=== PATIENT | female | born 1980 | race Caucasian/White ===

== ENCOUNTER 2019-06-25 10:44 | Emergency (ER) | payer MEDICAID ==
[~2019-06-25 10:44] MED LIST: NO HOME MEDS
== END 2019-06-25 11:26 | disposition left against medical advice (07) ==
LOC: ER 10:45
DX: R53.1 Weakness (principal); Z53.21 Procedure and treatment not carried out due to patient leaving prior to being seen by health care provider

== ENCOUNTER 2020-10-19 08:25 | Emergency (ER) | payer MEDICAID ==
[~2020-10-19] VITALS: Ht 160 cm; Wt 70.5 kg
[2020-10-19 08:26] VITALS: BP 118/70
== END 2020-10-19 08:59 | disposition home or self-care (01) ==
LOC: ER 08:26
DX: N61.0 Mastitis without abscess (principal); R11.0 Nausea; I10 Essential (primary) hypertension; F15.90 Other stimulant use, unspecified, uncomplicated; F17.200 Nicotine dependence, unspecified, uncomplicated; Z90.49 Acquired absence of other specified parts of digestive tract; Z72.89 Other problems related to lifestyle
CPT/HCPCS: 99284

== ENCOUNTER 2021-04-02 02:45 | Emergency (ER) | payer MEDICAID ==
[~2021-04-02] VITALS: Ht 160 cm; Wt 68.2 kg
[2021-04-02 02:48] VITALS: BP 146/93
[2021-04-02] MEDS ORDERED: ketorolac tromethamine 15mg/ml inj. IM ONE (03:00)
== END 2021-04-02 03:04 | disposition home or self-care (01) ==
LOC: ER 02:45
DX: S39.012A Strain of muscle, fascia and tendon of lower back, initial encounter (principal); M54.41 Lumbago with sciatica, right side; I10 Essential (primary) hypertension; F15.90 Other stimulant use, unspecified, uncomplicated; Z90.49 Acquired absence of other specified parts of digestive tract; Z72.89 Other problems related to lifestyle; X58.XXXA Exposure to other specified factors, initial encounter; Y93.89 Activity, other specified; Y92.89 Other specified places as the place of occurrence of the external cause; Y99.8 Other external cause status
CPT/HCPCS: 99282

== ENCOUNTER 2021-11-12 17:29 | Emergency (ER) | payer MEDICAID ==
[~2021-11-12] VITALS: Ht 160 cm; Wt 68.2 kg
[2021-11-12] MEDS ORDERED: CefTRIAXone 1000mg IM Kit (w/lidocaine diluent) IM ONE (18:15)
[2021-11-12] MEDS ORDERED: TETanus/Pertussis (Acell)/Diphther VAC/PF (Tdap-Adult) 0.5ml syringe IMVAC ONE (18:20)
[2021-11-12] MEDS ORDERED: LIDOcaine 1% W/epiNEPHrine 1:200,000 10ml vial IJ ONE (18:20)
[2021-11-12] MEDS ORDERED: ceFAZolin 1gm IM kit IM ONE (18:25)
[2021-11-12] MEDS ORDERED: LIDOcaine 1% W/epiNEPHrine 1:100,000 20ml vial IJ ONE (18:30)
[2021-11-12] MEDS ORDERED: IBUP-1986 PO (18:34)
[2021-11-12] MEDS ORDERED: SULF1TAB49 PO (18:34)
[2021-11-12 18:54] VITALS: BP 120/82
== END 2021-11-12 18:51 | disposition home or self-care (01) ==
LOC: ER 17:30
DX: L02.611 Cutaneous abscess of right foot (principal); I10 Essential (primary) hypertension; F15.10 Other stimulant abuse, uncomplicated; Z79.899 Other long term (current) drug therapy
CPT/HCPCS: 10060; 73630; 90471; 90715; 96372; 99284; J0690

== ENCOUNTER 2021-11-14 07:56 | Emergency (ER) | payer MEDICAID ==
[~2021-11-14] VITALS: Ht 160 cm; Wt 78.2 kg
[~2021-11-14 07:56] MED LIST changes: +IBUP-1986 PO; +SULF1TAB49 PO
[2021-11-14 08:00] VITALS: BP 131/83
[2021-11-14 09:46] LABS: BASOPHILS % (AUTO) 0.1 % (0-1); EOSINOPHILS # (AUTO) 0.4 X10'3 (0-0.9); EOSINOPHILS % (AUTO) 3.6 % (0-6); HEMATOCRIT 45.3 % (35.0-45.0); HEMOGLOBIN 15.3 g/dl (12.0-16.0); LYMPHOCYTES # (AUTO) 0.5 X10'3 (1.1-4.8); LYMPHOCYTES % (AUTO) 4.4 % (21-51); MEAN CORPUSCULAR HEMOGLOBIN 28.7 PG (27.0-31.0); MEAN CORPUSCULAR HGB CONC 33.7 g/dL (33.0-36.5); MEAN CORPUSCULAR VOLUME 85.1 FL (78-98); MEAN PLATELET VOLUME 7.5 FL (7.4-10.4); MONOCYTES # (AUTO) 0.2 X10'3 (0-0.9); MONOCYTES % (AUTO) 2.2 % (2-12); NEUTROPHILS # (AUTO) 9.5 X10'3 (1.8-7.7); NEUTROPHILS % (AUTO) 89.7 % (42-75); PLATELET COUNT 281 X10'3 (140-440); RED BLOOD COUNT 5.33 X10'6 (4.20-5.60); RED CELL DISTRIBUTION WIDTH 13.1 % (11.5-14.5); WHITE BLOOD COUNT 10.6 X10'3 (4.5-11.0)
[2021-11-14 10:03] LABS: ALANINE AMINOTRANSFERASE 47 U/L (12-78); ALBUMIN 3.9 G/DL (3.4-5.0); ALBUMIN/GLOBULIN RATIO 0.7 (1.1-1.5); ALKALINE PHOSPHATASE 106 IU/L (46-116); ANION GAP 12 (8-16); ASPARTATE AMINO TRANSFERASE 42 U/L (10-37); BILIRUBIN,TOTAL 0.5 MG/DL (0.1-1.0); BLOOD UREA NITROGEN 5 MG/DL (7-18); CALCIUM 8.9 MG/DL (8.5-10.1); CHLORIDE 97 MMOL/L (99-107); CREATININE 0.71 MG/DL (0.40-0.90); GLUCOSE 107 MG/DL (70-104); POTASSIUM 3.7 MMOL/L (3.5-5.1); SODIUM 134 MMOL/L (135-145); TOTAL PROTEIN 9.4 G/DL (6.4-8.2); eGFR > 90 ML/MIN
== END 2021-11-14 14:42 | disposition left against medical advice (07) ==
LOC: ER 07:57
DX: M79.671 Pain in right foot (principal); Z53.21 Procedure and treatment not carried out due to patient leaving prior to being seen by health care provider
CPT/HCPCS: 36415; 71045; 80053; 83605; 84145; 84484; 85025; 87040

== ENCOUNTER 2021-11-17 16:01 | Emergency (ER) | payer MEDICAID ==
[~2021-11-17] VITALS: Ht 160 cm; Wt 68.0 kg
[2021-11-17] MEDS ORDERED: normal saline 1000ML IV soln IV ONE (16:55)
[2021-11-17 17:30] LABS: BASOPHILS % (AUTO) 0.2 % (0-1); EOSINOPHILS # (AUTO) 0.5 X10'3 (0-0.9); EOSINOPHILS % (AUTO) 5.7 % (0-6); HEMOGLOBIN 13.8 g/dl (12.0-16.0); LYMPHOCYTES # (AUTO) 1.7 X10'3 (1.1-4.8); LYMPHOCYTES % (AUTO) 21.3 % (21-51); MEAN CORPUSCULAR HEMOGLOBIN 29.3 PG (27.0-31.0); MEAN CORPUSCULAR HGB CONC 34.6 g/dL (33.0-36.5); MEAN CORPUSCULAR VOLUME 84.6 FL (78-98); MONOCYTES # (AUTO) 0.6 X10'3 (0-0.9); MONOCYTES % (AUTO) 7.5 % (2-12); NEUTROPHILS # (AUTO) 5.2 X10'3 (1.8-7.7); NEUTROPHILS % (AUTO) 65.3 % (42-75); PLATELET COUNT 319 X10'3 (140-440); RED BLOOD COUNT 4.73 X10'6 (4.20-5.60); RED CELL DISTRIBUTION WIDTH 12.6 % (11.5-14.5)
[2021-11-17] MEDS ORDERED: morphine 4 MG/ML inj SYRINge IV ONE (17:30)
[2021-11-17 17:37] LABS: ALANINE AMINOTRANSFERASE 46 U/L (12-78); ALBUMIN 3.2 G/DL (3.4-5.0); ALBUMIN/GLOBULIN RATIO 0.7 (1.1-1.5); ALKALINE PHOSPHATASE 98 IU/L (46-116); ANION GAP 11 (8-16); ASPARTATE AMINO TRANSFERASE 27 U/L (10-37); BILIRUBIN,TOTAL 0.4 MG/DL (0.1-1.0); BLOOD UREA NITROGEN 10 MG/DL (7-18); BUN/CREATININE RATIO 16.1 (6.6-38.0); C-REACTIVE PROTEIN 9.63 MG/DL (0.0-0.5); CALCIUM 8.7 MG/DL (8.5-10.1); CHLORIDE 104 MMOL/L (99-107); CREATININE 0.62 MG/DL (0.40-0.90); GLUCOSE 95 MG/DL (70-104); POTASSIUM 3.3 MMOL/L (3.5-5.1); SODIUM 142 MMOL/L (135-145); TOTAL CARBON DIOXIDE 27.4 MMOL/L (24-32); TOTAL PROTEIN 7.9 G/DL (6.4-8.2); eGFR > 90 ML/MIN
[2021-11-17] MEDS ORDERED: diphenhydrAMINE 50 mg/ml inj IV ONE (17:50)
[2021-11-17 17:52] VITALS: BP 111/71
--- NOTE | 2021-11-17 18:07 | NUR ---
assisting with pt care, pt is resting quietly on gurney, c/o "stinging to private area and rectum", also c/o of blisters to left groin
[2021-11-17] MEDS ORDERED: iohexol 300mg/ml 100ml inj. ONE (18:19)
[2021-11-17] MEDS ORDERED: HYDROcodone/acetaminophen 5mg/325mg tablet PO ONE (18:30)
--- NOTE | 2021-11-17 19:15 | NUR ---
IV PUT IN LEFT AC SALINE FLUSH.
[2021-11-17] MEDS ORDERED: piperacillin/tazo 3.375gm/50ml 50 ML IV ONE (20:35)
--- NOTE | 2021-11-17 21:08 | NUR ---
PT STATED SHE WANTED TO GO SMOKE, PT BEGAN TO WALK OUT AND HAD AN IV THAT SHE THEN RIPPED OUT.
--- NOTE | 2021-11-17 21:30 | NUR ---
PT STATED "WANTS TO LEAVE TO SMOKE OUTSIDE" PATIENT LEFT AT 2100
--- NOTE | 2021-11-17 22:28 | NUR ---
PT REFUSED TO SIGN AMA PAPERWORK, WITNESSED BY SLADE DEMPSEY. DR. GU AWARE AND SIGNED AMA PAPER.
== END 2021-11-17 22:31 | disposition left against medical advice (07) ==
LOC: ER 16:01
DX: L08.9 Local infection of the skin and subcutaneous tissue, unspecified (principal); R53.1 Weakness; M79.89 Other specified soft tissue disorders
CPT/HCPCS: 36415; 74177; 80053; 83605; 84145; 85025; 85651; 86140; 87040; 96374; 96375; 99285; J1200; J2270; J7030; Q9967

== ENCOUNTER 2022-03-26 19:31 | Emergency (ER) | payer MEDICAID ==
[~2022-03-26] VITALS: Ht 160 cm; Wt 75.0 kg
[~2022-03-26 19:31] MED LIST changes: -SULF1TAB49 PO
[2022-03-26] MEDS ORDERED: ondansetron/PF 4mg/2ml inj IV ONE (19:45)
[2022-03-26 20:27] LABS: BASOPHILS % (AUTO) 0.2 % (0-1); EOSINOPHILS # (AUTO) 0.1 X10'3 (0-0.9); EOSINOPHILS % (AUTO) 0.5 % (0-6); HEMATOCRIT 40.4 % (35.0-45.0); HEMOGLOBIN 13.7 g/dl (12.0-16.0); LYMPHOCYTES # (AUTO) 0.9 X10'3 (1.1-4.8); LYMPHOCYTES % (AUTO) 5.7 % (21-51); MEAN CORPUSCULAR HEMOGLOBIN 28.9 PG (27.0-31.0); MEAN CORPUSCULAR VOLUME 85.1 FL (78-98); MONOCYTES # (AUTO) 0.7 X10'3 (0-0.9); MONOCYTES % (AUTO) 4.5 % (2-12); NEUTROPHILS # (AUTO) 13.5 X10'3 (1.8-7.7); NEUTROPHILS % (AUTO) 89.1 % (42-75); PLATELET COUNT 278 X10'3 (140-440); RED BLOOD COUNT 4.75 X10'6 (4.20-5.60); RED CELL DISTRIBUTION WIDTH 13.1 % (11.5-14.5); WHITE BLOOD COUNT 15.2 X10'3 (4.5-11.0)
[2022-03-26 20:42] LABS: ALANINE AMINOTRANSFERASE 105 U/L (12-78); ALBUMIN 3.5 G/DL (3.4-5.0); ALBUMIN/GLOBULIN RATIO 0.8 (1.1-1.5); ALKALINE PHOSPHATASE 104 IU/L (46-116); ANION GAP 6 (8-16); ASPARTATE AMINO TRANSFERASE 107 U/L (10-37); BILIRUBIN,TOTAL 0.1 MG/DL (0.1-1.0); BLOOD UREA NITROGEN 10 MG/DL (7-18); BUN/CREATININE RATIO 12.3 (6.6-38.0); CALCIUM 9.1 MG/DL (8.5-10.1); CHLORIDE 104 MMOL/L (99-107); CREATININE 0.81 MG/DL (0.40-0.90); GLUCOSE 183 MG/DL (70-104); POTASSIUM 4.4 MMOL/L (3.5-5.1); SODIUM 140 MMOL/L (135-145); TOTAL CARBON DIOXIDE 30.3 MMOL/L (24-32); TOTAL PROTEIN 7.9 G/DL (6.4-8.2); eGFR 78 ML/MIN
[2022-03-26 20:44] LABS: HCG SERUM QL NEGATIVE
--- NOTE | 2022-03-26 20:46 | NUR ---
RECEIVED PERMISSION FROM THE PT TO INFORM HER MOTHER OF HER CONDITION AND TO CONTINUE TO PROVIDE INFORMATION/UPDATES ON THE PATIENT. MOTHER NAME IS PIERCE AVILES AND CAN BE CONTACTED VIA [phone]. MOTHER ASKED TO BE CONTACTED WHEN SHE CAN SEE HER AND IF THERE ARE ANY UPDATES.
[2022-03-26 20:49] LABS: MAGNESIUM 2.1 MG/DL (1.5-2.4)
--- NOTE | 2022-03-26 21:10 | NUR ---
MAURA ([employer]) [phone]
[2022-03-26 22:28] VITALS: BP 106/72
[2022-03-26] MEDS ORDERED: ibuprofen tablet 400 MG TABLET PO ONE (22:30)
[2022-03-26] MEDS ORDERED: NALO4SPR BOTHNARES (22:31)
== END 2022-03-26 22:48 | disposition home or self-care (01) ==
LOC: ER 19:32
DX: T40.411A Poisoning by fentanyl or fentanyl analogs, accidental (unintentional), initial encounter (principal); R41.82 Altered mental status, unspecified; F15.10 Other stimulant abuse, uncomplicated; Y92.89 Other specified places as the place of occurrence of the external cause; Z88.2 Allergy status to sulfonamides; Z79.899 Other long term (current) drug therapy; I10 Essential (primary) hypertension
CPT/HCPCS: 71045; 80053; 83735; 83880; 84145; 84484; 84703; 85025; 93005; 96374; 99285; J2405

== ENCOUNTER 2022-03-27 02:49 | Emergency (ER) | payer MEDICAID ==
[~2022-03-27] VITALS: Ht 160 cm; Wt 72.7 kg
[~2022-03-27 02:49] MED LIST changes: +NALO4SPR BOTHNARES
[2022-03-27 03:09] VITALS: BP 113/77
== END 2022-03-27 04:47 | disposition left against medical advice (07) ==
LOC: ER 02:49
DX: R06.02 Shortness of breath (principal); Z53.21 Procedure and treatment not carried out due to patient leaving prior to being seen by health care provider
CPT/HCPCS: 80053; 83880; 93005

== ENCOUNTER 2022-04-02 19:57 | Emergency (ER) | payer MEDICAID | END 2022-04-02 21:08 | disposition left against medical advice (07) | LOC: ER 19:58 | DX: R06.02 Shortness of breath (principal); Z53.21 Procedure and treatment not carried out due to patient leaving prior to being seen by health care provider ==

== ENCOUNTER 2023-08-28 11:31 | Emergency (ER) | payer MEDICAID ==
[~2023-08-28] VITALS: Ht 160 cm; Wt 63.6 kg
[2023-08-28] MEDS ORDERED: ondansetron/PF 4mg/2ml inj IV ONE (11:50)
[2023-08-28] MEDS ORDERED: HYDROmorphone 1 mg/ml syringe IV ONE (11:50)
[2023-08-28 12:05] LABS: BASOPHILS # (AUTO) 0.1 X10'3 (0-0.2); BASOPHILS % (AUTO) 0.4 % (0-1); EOSINOPHILS # (AUTO) 0.2 X10'3 (0-0.9); EOSINOPHILS % (AUTO) 0.8 % (0-6); HEMATOCRIT 41.6 % (35.0-45.0); HEMOGLOBIN 14.4 g/dl (12.0-16.0); LYMPHOCYTES # (AUTO) 2.1 X10'3 (1.1-4.8); LYMPHOCYTES % (AUTO) 10.7 % (21-51); MEAN CORPUSCULAR HEMOGLOBIN 29.9 PG (27.0-31.0); MEAN CORPUSCULAR HGB CONC 34.6 g/dL (33.0-36.5); MEAN CORPUSCULAR VOLUME 86.6 FL (78-98); MONOCYTES # (AUTO) 0.8 X10'3 (0-0.9); MONOCYTES % (AUTO) 3.9 % (2-12); NEUTROPHILS # (AUTO) 16.4 X10'3 (1.8-7.7); NEUTROPHILS % (AUTO) 84.2 % (42-75); PLATELET COUNT 314 X10'3 (140-440); RED BLOOD COUNT 4.81 X10'6 (4.20-5.60); WHITE BLOOD COUNT 19.5 X10'3 (4.5-11.0)
[2023-08-28] MEDS ORDERED: HYDROmorphone inj. 0.5 MG/0.5 ML DISP.SYRIN IV ONE (12:10)
[2023-08-28 12:17] LABS: ALANINE AMINOTRANSFERASE 22 U/L (12-78); ALBUMIN 3.3 G/DL (3.4-5.0); ALBUMIN/GLOBULIN RATIO 0.8 (1.1-1.5); ALKALINE PHOSPHATASE 87 IU/L (46-116); ANION GAP 9 (8-16); ASPARTATE AMINO TRANSFERASE 18 U/L (10-37); BILIRUBIN,TOTAL 0.2 MG/DL (0.1-1.0); BLOOD UREA NITROGEN 13 MG/DL (7-18); CALCIUM 9.1 MG/DL (8.5-10.1); CHLORIDE 101 MMOL/L (99-107); CREATININE 0.62 MG/DL (0.40-0.90); GLUCOSE 108 MG/DL (70-104); POTASSIUM 3.6 MMOL/L (3.5-5.1); SODIUM 137 MMOL/L (135-145); TOTAL CARBON DIOXIDE 26.9 MMOL/L (24-32); TOTAL PROTEIN 7.4 G/DL (6.4-8.2); eCRCL 97 ML/MIN; eGFR > 90 ML/MIN
[2023-08-28 13:45] VITALS: BP 113/62; PULSE 83; TEMP 98.4; O2SAT 100
[2023-08-28 14:28] VITALS: RESP 16
== END 2023-08-28 13:55 | disposition left against medical advice (07) ==
LOC: ER 11:31
DX: O03.9 Complete or unspecified spontaneous abortion without complication (principal); I10 Essential (primary) hypertension; F15.90 Other stimulant use, unspecified, uncomplicated; Z88.0 Allergy status to penicillin; Z88.2 Allergy status to sulfonamides; Z79.1 Long term (current) use of non-steroidal anti-inflammatories (NSAID); Z79.899 Other long term (current) drug therapy; Z90.49 Acquired absence of other specified parts of digestive tract
CPT/HCPCS: 36415; 76801; 80053; 85025; 96374; 96375; 99285; J1170; J2405; A6449